=== PATIENT | female | born 1950 | race Hispanic/Latino ===

== ENCOUNTER 2018-02-09 06:42 | Day surgery (SDC) | payer MEDICARE, OTHER ==
[2018-02-08 13:02] VITALS: BMI 28.5
[2018-02-09] MEDS ORDERED: Propofol 10 mg/ml Inj (20 ML) ONE (07:53)
--- NOTE | 2018-02-09 08:25 | CP.SDSHP ---
Same Day Surgery H & P - History Proposed Procedure: EGD Pre-Op Diagnosis: SEE NOTES - Previous Medical/Surgical History Cardiac: Hypertension, ASHD/CAD Endocrine/Metabolic: Other Misc: Other Pain: 4.Moderate Pain - Allergies Allergies: Allergies No Known Allergies Allergy (Verified 02/09/18 06:59) - Physical Exam General Appearance: N Vital Signs: Vital Signs 02/09/18 02/09/18 07:04 07:40 Temperature 97.6 F Pulse Rate 64 64 Respiratory 19 Rate Blood Pressure 141/73 O2 Sat by Pulse 100 Oximetry Mental Status: Alert & Oriented x3 Neuro: WNL Heart: Other Lungs: WNL GI: Other - {Optional Preform as Required} Breast: WNL Abdomen: Other Rectal: Other Integument: WNL : WNL Ortho: Other ENT: WNL - Impression Pt. Evaluated Today:Candidate for Anesthesia & Procedure: Yes - Date & Time Time: 08:25 Short Stay Discharge - Short Stay Discharge Admitting Diagnosis/Reason for Visit: DYSPEPSIA Disposition: HOME/ ROUTINE
[2018-02-09] MEDS ORDERED: Lactated Ringer's 500 ML IV SCH (08:45)
[2018-02-09] MEDS ORDERED: Belladonna-Phenobarbital PO ONE (08:50)
[2018-02-09 08:58] VITALS: TEMP 98
[2018-02-09] MEDS ORDERED: Pantoprazole 40 mg EC Tab PO ONE (09:00)
[2018-02-09 09:21] VITALS: BP 128/60; PULSE 75; RESP 18; O2SAT 99
== END 2018-02-09 09:25 | disposition home or self-care (01) ==
LOC: C.ENDO 06:42
PROVIDERS: ATTEND Specialist
DX: K25.9 Gastric ulcer, unspecified as acute or chronic, without hemorrhage or perforation (principal); E78.5 Hyperlipidemia, unspecified; I10 Essential (primary) hypertension; I25.2 Old myocardial infarction; Z95.5 Presence of coronary angioplasty implant and graft; K44.9 Diaphragmatic hernia without obstruction or gangrene; K31.9 Disease of stomach and duodenum, unspecified; I25.10 Atherosclerotic heart disease of native coronary artery without angina pectoris
CPT/HCPCS: 43239; 88305; 88342; J2001; J2704; J7120

== ENCOUNTER 2018-07-08 08:31 | Day surgery (SDC) | payer MEDICARE, OTHER ==
[2018-07-08 09:07] VITALS: BMI 28.7
[2018-07-08 09:16] VITALS: TEMP 97.1
[2018-07-08] MEDS ORDERED: Propofol 10 mg/ml Inj (20 ML) ONE (09:53)
--- NOTE | 2018-07-08 09:53 | CP.SDSHP ---
Same Day Surgery H & P - History Proposed Procedure: EGD Pre-Op Diagnosis: SEE NOTES - Previous Medical/Surgical History Cardiac: Hypertension, ASHD/CAD Endocrine/Metabolic: Other Misc: Other Pain: 4.Moderate Pain - Allergies Allergies: Allergies No Known Allergies Allergy (Verified 07/08/18 09:02) - Physical Exam General Appearance: N Vital Signs: Vital Signs 07/08/18 09:05 Temperature 97.1 F L Pulse Rate 74 Respiratory 20 Rate Blood Pressure 121/48 L O2 Sat by Pulse 98 Oximetry Mental Status: Alert & Oriented x3 Neuro: WNL Heart: Other Lungs: WNL GI: Other - {Optional Preform as Required} Breast: WNL Abdomen: Other Rectal: Other Integument: WNL : WNL Ortho: Other ENT: WNL - Impression Pt. Evaluated Today:Candidate for Anesthesia & Procedure: Yes - Date & Time Time: 09:52 Short Stay Discharge - Short Stay Discharge Admitting Diagnosis/Reason for Visit: GASTRIC ULCER, UNSP ACUTE OR CHRONIC, W /O HEMOR Disposition: HOME/ ROUTINE
[2018-07-08] MEDS ORDERED: Lactated Ringer's 1,000 ML IV ONE (10:00)
[2018-07-08] MEDS ORDERED: Belladonna-Phenobarbital PO ONE (10:50)
[2018-07-08 11:49] VITALS: RESP 15; O2SAT 97
[2018-07-08 13:55] VITALS: BP 137/57; PULSE 63
== END 2018-07-08 12:30 | disposition home or self-care (01) ==
LOC: C.ENDO 08:31
PROVIDERS: ATTEND Specialist
DX: K25.9 Gastric ulcer, unspecified as acute or chronic, without hemorrhage or perforation (principal); I10 Essential (primary) hypertension; I25.10 Atherosclerotic heart disease of native coronary artery without angina pectoris; K44.9 Diaphragmatic hernia without obstruction or gangrene; K29.70 Gastritis, unspecified, without bleeding
CPT/HCPCS: 43239; 88305; J2001; J2704; J7120